=== PATIENT | female | born 1965 | race Caucasian/White ===

== ENCOUNTER 2018-01-18 00:02 | Emergency (ER) | payer OTHER ==
[2018-01-18 00:02] VITALS: BMI 30.9
[2018-01-18 00:25] VITALS: BP 134/84; PULSE 74; RESP 18; TEMP 98.4; O2SAT 99
--- NOTE | 2018-01-18 01:16 | C.PDOC ---
History Of Present Illness 52 year old female presents to the ER after her left ring finger was caught in the garage door at approximately 1500. Patient states the pain and swelling has gotten progressively worse which prompted visit. Denies weakness or numbness. Time Seen by Provider: 01/18/18 00:23 Chief Complaint (Nursing): Finger,Hand,&Wrist History Per: Patient History/Exam Limitations: no limitations Onset/Duration Of Symptoms: Hrs Current Symptoms Are (Timing): Still Present Recent travel outside of the [place]: No Past Medical History Reviewed: Historical Data, Nursing Documentation, Vital Signs Vital Signs: Last Vital Signs Temp 98.4 F 01/18/18 00:10 Pulse 74 01/18/18 00:10 Resp 18 01/18/18 00:10 BP 134/84 01/18/18 00:10 Pulse Ox 99 01/18/18 00:10 Family History: States: Unknown Family Hx - Social History Hx Alcohol Use: No Hx Substance Use: No Review Of Systems Musculoskeletal: Positive for: Other (Left 4th finger pain and swelling) Neurological: Negative for: Weakness, Numbness Physical Exam - Physical Exam Appears: Non-toxic Skin: Warm, Dry Head: Atraumatic, Normacephalic Eye(s): bilateral: Normal Inspection Extremity: Normal ROM (x4), Capillary Refill (<2 seconds), No Deformity, Other (Ecchymosis to volar aspect of left 4th finger distally. Subungal hematoma of left 4th finger. No tenderness, swelling, or warmth.) Pulses: Left Radial: Normal, Right Radial: Normal Neurological/Psych: Oriented x3, Normal Speech, Normal Motor, Normal Sensation ED Course And Treatment O2 Sat by Pulse Oximetry: 99 (Room air) Pulse Ox Interpretation: Normal - Other Rad Left hand x-ray X-Ray: Interpreted by Me, Viewed By Me Interpretation: Fracture of the left 4th distal phalanx. Progress Note: Left hand x-ray ordered, results showed a positive fracture of the left 4th distal phalanx. Trephination of the left 4th finger performed using bovie cautery with good draining of the hematoma. Patient reports improvement of pain, bacitracin, dressing, and finger splint applied. Patient discharged home with Rx and instructions to follow up with hand specialist for further evaluation. Disposition Counseled Patient/Family Regarding: Diagnosis, Need For Followup, Rx Given - Disposition Referrals: Jess Conte MD [Staff Provider] - Disposition: HOME/ ROUTINE Disposition Time: 01:13 Condition: STABLE Additional Instructions: APPLY ICE KEEP SPLINT FOR SUPPORT FOLLOW UP WITH [facility]- CALL FOR APPOINTMENT TYLENOL OR ADVIL FOR PAIN RETURN TO ER IF SEVERE PAIN, NUMBNESS, MODERATE DISCOLORATION, REDNESS OR WORSE Instructions: Contusion (DC), Finger Fracture (DC), Common Finger Injuries (DC), Common Finger Injuries Forms: [facility] ([facility]) - Clinical Impression Clinical Impression: Subungual hematoma of finger of left hand, Fracture of distal phalanx of finger of left hand - PA / UX DEVELOPER DESIGNER / Resident Statement MD/DO has reviewed & agrees with the documentation as recorded. - Scribe Statement The provider has reviewed the documentation as recorded by the Scriblilliana Diane All medical record entries made by the Manpreetiblilliana were at my direction and personally dictated by me. I have reviewed the chart and agree that the record accurately reflects my personal performance of the history, physical exam, medical decision making, and the department course for this patient. I have also personally directed, reviewed, and agree with the discharge instructions and disposition.
[2018-01-18] MEDS ORDERED: Bacitracin 500 Units/gm Oint Foilpak UD ONE (01:18)
--- NOTE | 2018-01-18 08:50 | RAD ---
Date of service: 01/18/2018 PROCEDURE: Left ring finger radiographs. HISTORY: pain, caught in garage door COMPARISON: None. TECHNIQUE: AP radiograph of the left hand, as well as spot oblique and lateral images of left ring finger were obtained. FINDINGS: LEFT RING FINGER: Left ring finger normal, without fracture of focal lesion. Remainder of the left hand (as seen on the AP view) is grossly unremarkable. JOINTS: Normal. SOFT TISSUES: Normal. OTHER FINDINGS: None. IMPRESSION: Normal left ring finger radiographs.
== END 2018-01-18 01:24 | disposition home or self-care (01) ==
LOC: C.ER 00:02
DX: S62.635A Displaced fracture of distal phalanx of left ring finger, initial encounter for closed fracture (principal); S60.142A Contusion of left ring finger with damage to nail, initial encounter; W23.0XXA Caught, crushed, jammed, or pinched between moving objects, initial encounter